=== PATIENT | female | born 1965 | race Caucasian/White ===

== ENCOUNTER 2018-05-12 13:49 | Emergency (ER) | payer BC ==
[~2018-05-12] VITALS: Ht 162.6 cm; Wt 74.4 kg
[2018-05-12 13:54] VITALS: BP 125/78
[2018-05-12] MEDS: ACETAMINOPHEN EXTRA STRENGTH 500 MG TAB PO ONE (14:23)
[2018-05-12 15:05] VITALS: BP 120/75
== END 2018-05-12 15:07 | disposition home or self-care (01) ==
LOC: MED 13:49
DX: S52.512A Displaced fracture of left radial styloid process, initial encounter for closed fracture (principal); V89.2XXA Person injured in unspecified motor-vehicle accident, traffic, initial encounter; Y93.89 Activity, other specified; Y92.411 Interstate highway as the place of occurrence of the external cause; Y99.8 Other external cause status
CPT/HCPCS: 73110; 99284